=== PATIENT | female | born 1930 | race Caucasian/White ===

== ENCOUNTER 2017-12-29 11:47 | Emergency (ER) | payer MEDICARE, OTHER ==
[2017-12-29] MEDS: PERCOCET 5MG/325MG TAB PO (12:22)
== END 2017-12-29 14:07 | disposition home or self-care (01) ==
LOC: M ED 11:47
DX: S43.101A Unspecified dislocation of right acromioclavicular joint, initial encounter (principal); X50.1XXA Overexertion from prolonged static or awkward postures, initial encounter; Y92.092 Bedroom in other non-institutional residence as the place of occurrence of the external cause; I12.9 Hypertensive chronic kidney disease with stage 1 through stage 4 chronic kidney disease, or unspecified chronic kidney disease; F41.9 Anxiety disorder, unspecified; K21.9 Gastro-esophageal reflux disease without esophagitis; Z85.3 Personal history of malignant neoplasm of breast; N18.4 Chronic kidney disease, stage 4 (severe); Z99.2 Dependence on renal dialysis; Z87.891 Personal history of nicotine dependence; Z88.2 Allergy status to sulfonamides; Z88.8 Allergy status to other drugs, medicaments and biological substances; Z88.0 Allergy status to penicillin; Z88.1 Allergy status to other antibiotic agents; Z79.899 Other long term (current) drug therapy
CPT/HCPCS: 73030

== ENCOUNTER 2018-06-25 06:38 | Inpatient (IN) | payer MEDICARE, OTHER, MEDICAID ==
[2018-06-25] MEDS: cloNIDine 0.2 MG TAB PO (07:29)
[2018-06-25 08:56] LABS: BASO % 1.3 % (0.0-1.0); EOS # 0.2 10^3/uL (0.0-0.50); EOS % 5.2 % (0.0-3.0); HEMATOCRIT 27.9 % (36.0-47.0); HEMOGLOBIN 9.1 g/dl (12.0-15.5); IMMATURE GRANULOCYTE % 0.3 % (0-3.0); LYMPH # 0.5 10^3/uL (1.5-4.5); MEAN CORPUSCULAR HEMOGLOBIN 34.6 pg (27.0-33.0); MEAN CORPUSCULAR HGB CONC 32.6 g/dl (32.0-36.5); MEAN CORPUSCULAR VOLUME 106.1 fl (80.0-96.0); MONO # 0.2 10^3/uL (0.0-0.8); MONO % 7.8 % (0.0-5.0); NEUTROPHILS # 2.1 10^3/uL (1.8-7.7); NEUTROPHILS % 69.4 % (36.0-66.0); RED BLOOD COUNT 2.63 10^6/uL (4.00-5.40); RED CELL DISTRIBUTION WIDTH 13.4 % (11.5-14.5); WHITE BLOOD COUNT 3.1 10^3/uL (4.0-10.0)
[2018-06-25 08:58] LABS: ANION GAP 11 MEQ/L (8-16); BLOOD UREA NITROGEN 49 MG/DL (7-18); CALCIUM LEVEL 8.1 MG/DL (8.8-10.2); CARBON DIOXIDE LEVEL 28 MEQ/L (21-32); CHLORIDE LEVEL 102 MEQ/L (98-107); CREATININE FOR GFR 6.32 MG/DL (0.55-1.30); GLOMERULAR FILTRATION RATE 6.6 (>32); GLUCOSE, FASTING 101 MG/DL (70-100); POTASSIUM SERUM 4.6 MEQ/L (3.5-5.1); SODIUM LEVEL 141 MEQ/L (136-145)
[2018-06-25 09:31] LABS: PLATELET COUNT, AUTOMATED 94 10^3/uL (150-450)
[2018-06-25 09:33] LABS: IMMATURE PLATELET FRACTION % 4.6 % (0.0-9.6)
[2018-06-25] MEDS ORDERED: ACETAMINOPHEN TAB 650MG DOSE (2X325MG) PO (11:15)
[2018-06-25] MEDS: FAMOTIDINE 20 MG TAB PO (11:31)
[2018-06-25] MEDS: CitaloPRAM (CeleXA) 20 MG TAB PO (11:31)
[2018-06-25] MEDS: NORCO, ANEXSIA 5/325MG TABLET (HYDROcodone/ACETAMINOPHEN) PO ×2 (11:32→20:47)
[2018-06-25] MEDS: MELOXICAM (MOBIC) 7.5 MG TAB PO (11:53)
[2018-06-25] MEDS: GABAPENTIN 100 MG CAP PO (17:26)
[2018-06-25] MEDS: FUROSEMIDE 80 MG TAB PO (17:26)
[2018-06-25] MEDS: SENOKOT S TAB PO (20:47)
[2018-06-25] MEDS: cloNIDine 0.1 MG TAB PO (20:48)
[2018-06-26] MEDS: FAMOTIDINE 20 MG TAB PO (08:58)
[2018-06-26] MEDS: cloNIDine 0.1 MG TAB PO ×2 (08:58→21:49)
[2018-06-26] MEDS: CitaloPRAM (CeleXA) 20 MG TAB PO (08:58)
[2018-06-26] MEDS: GABAPENTIN 100 MG CAP PO ×2 (08:58→17:34)
[2018-06-26] MEDS: MELOXICAM (MOBIC) 7.5 MG TAB PO (08:58)
[2018-06-26] MEDS: NORCO, ANEXSIA 5/325MG TABLET (HYDROcodone/ACETAMINOPHEN) PO ×2 (08:59→21:48)
[2018-06-26 09:49] LABS: BASO # 0.1 10^3/uL (0.0-0.2); BASO % 1.3 % (0.0-1.0); EOS # 0.1 10^3/uL (0.0-0.50); EOS % 2.2 % (0.0-3.0); HEMATOCRIT 25.8 % (36.0-47.0); HEMOGLOBIN 8.5 g/dl (12.0-15.5); LYMPH # 0.6 10^3/uL (1.5-4.5); LYMPH % 16.2 % (24.0-44.0); MEAN CORPUSCULAR HEMOGLOBIN 34.8 pg (27.0-33.0); MEAN CORPUSCULAR HGB CONC 32.9 g/dl (32.0-36.5); MEAN CORPUSCULAR VOLUME 105.7 fl (80.0-96.0); MONO # 0.3 10^3/uL (0.0-0.8); MONO % 9.2 % (0.0-5.0); NEUTROPHILS # 2.6 10^3/uL (1.8-7.7); NEUTROPHILS % 71.1 % (36.0-66.0); PLATELET COUNT, AUTOMATED 100 10^3/uL (150-450); RED BLOOD COUNT 2.44 10^6/uL (4.00-5.40); RED CELL DISTRIBUTION WIDTH 13.5 % (11.5-14.5); WHITE BLOOD COUNT 3.7 10^3/uL (4.0-10.0)
[2018-06-26 09:55] LABS: ALBUMIN 3.1 GM/DL (3.2-5.2); ANION GAP 5 MEQ/L (8-16); BLOOD UREA NITROGEN 22 MG/DL (7-18); CALCIUM LEVEL 7.9 MG/DL (8.8-10.2); CARBON DIOXIDE LEVEL 33 MEQ/L (21-32); CHLORIDE LEVEL 102 MEQ/L (98-107); CREATININE FOR GFR 4.24 MG/DL (0.55-1.30); GLOMERULAR FILTRATION RATE 10.5 (>32); GLUCOSE, FASTING 87 MG/DL (70-100); PHOSPHORUS LEVEL 3.7 MG/DL (2.5-4.9); POTASSIUM SERUM 4.2 MEQ/L (3.5-5.1); SODIUM LEVEL 140 MEQ/L (136-145)
[2018-06-26] MEDS: BUPIVACAINE HCL 0.5% 30 ML VIAL As Ordered (14:26)
[2018-06-26] MEDS: LIDOCAINE 1% SDV INJ 30 ML VIAL As Ordered (14:26)
[2018-06-26] MEDS ORDERED: LIDOCAINE 2% INJ 100 MG/5 ML SDV (FOR ANES.) As Ordered (15:43)
[2018-06-26] MEDS ORDERED: PROPOFOL 500 MG/50 ML VIAL As Ordered (15:44)
[2018-06-26] MEDS ORDERED: MIDAZOLAM INJ 2 MG/2 ML VIAL (J2250) As Ordered (15:44)
[2018-06-26] MEDS ORDERED: fentaNYL 100 MCG/2 ML INJECTION (J3010) As Ordered (15:44)
[2018-06-26] MEDS: HEPARIN SOD (PORCINE) 5000 UNITS/ML VIAL As Ordered (16:31)
[2018-06-26] MEDS ORDERED: ONDANSETRON 4MG/2ML VIAL (J2405) IV (17:30)
[2018-06-26] MEDS ORDERED: fentaNYL 100 MCG/2 ML INJECTION (J3010) IV (17:30)
[2018-06-26] MEDS: NS 1,000 ML IV (17:30)
[2018-06-26] MEDS: FUROSEMIDE 80 MG TAB PO (17:35)
[2018-06-26] MEDS: SENOKOT S TAB PO (21:48)
[2018-06-27 06:11] LABS: EOS # 0.1 10^3/uL (0.0-0.50); EOS % 2.4 % (0.0-3.0); HEMATOCRIT 24.2 % (36.0-47.0); HEMOGLOBIN 7.8 g/dl (12.0-15.5); IMMATURE GRANULOCYTE % 0.3 % (0-3.0); LYMPH # 0.6 10^3/uL (1.5-4.5); MEAN CORPUSCULAR HEMOGLOBIN 34.5 pg (27.0-33.0); MEAN CORPUSCULAR HGB CONC 32.2 g/dl (32.0-36.5); MEAN CORPUSCULAR VOLUME 107.1 fl (80.0-96.0); MONO # 0.4 10^3/uL (0.0-0.8); NEUTROPHILS # 2.7 10^3/uL (1.8-7.7); NEUTROPHILS % 71.3 % (36.0-66.0); RED BLOOD COUNT 2.26 10^6/uL (4.00-5.40); RED CELL DISTRIBUTION WIDTH 13.5 % (11.5-14.5); WHITE BLOOD COUNT 3.8 10^3/uL (4.0-10.0)
[2018-06-27 06:17] LABS: PLATELET COUNT, AUTOMATED 90 10^3/uL (150-450)
[2018-06-27 06:18] LABS: IMMATURE PLATELET FRACTION % 3.5 % (0.0-9.6)
[2018-06-27 06:30] LABS: ALBUMIN 2.9 GM/DL (3.2-5.2); ANION GAP 9 MEQ/L (8-16); BLOOD UREA NITROGEN 35 MG/DL (7-18); CALCIUM LEVEL 7.7 MG/DL (8.8-10.2); CARBON DIOXIDE LEVEL 31 MEQ/L (21-32); CHLORIDE LEVEL 101 MEQ/L (98-107); CREATININE FOR GFR 5.76 MG/DL (0.55-1.30); GLOMERULAR FILTRATION RATE 7.4 (>32); GLUCOSE, FASTING 88 MG/DL (70-100); POTASSIUM SERUM 4.7 MEQ/L (3.5-5.1); SODIUM LEVEL 141 MEQ/L (136-145)
[2018-06-27] MEDS: CitaloPRAM (CeleXA) 20 MG TAB PO (06:34)
[2018-06-27] MEDS: FAMOTIDINE 20 MG TAB PO (06:34)
[2018-06-27] MEDS: cloNIDine 0.1 MG TAB PO ×2 (06:35→20:05)
[2018-06-27] MEDS: GABAPENTIN 100 MG CAP PO ×2 (06:35→17:07)
[2018-06-27] MEDS: MELOXICAM (MOBIC) 7.5 MG TAB PO (06:35)
[2018-06-27] MEDS: NORCO, ANEXSIA 5/325MG TABLET (HYDROcodone/ACETAMINOPHEN) PO ×2 (06:36→20:06)
[2018-06-27] MEDS ORDERED: DARBEPOETIN 100 MCG/0.5 ML *DIALYSIS* SYRINGE (J0882) IV (11:00)
[2018-06-27 12:44] LABS: IMMEDIATE SPIN CROSSMATCH 1 1
[2018-06-27] MEDS: HEPARIN 1,000 UNITS/ML 10ML VIAL (FOR RADIOLOGY& DIALYSIS ONLY) IV (14:21)
[2018-06-27] MEDS: FUROSEMIDE 80 MG TAB PO (17:07)
[2018-06-27] MEDS: (RENVELA) SEVELAMER **CARBONate** 800 MG TAB PO (17:54)
[2018-06-27] MEDS: SENOKOT S TAB PO ×2 (20:03→20:53)
[2018-06-28 07:06] LABS: ALBUMIN 2.9 GM/DL (3.2-5.2); ANION GAP 8 MEQ/L (8-16); BLOOD UREA NITROGEN 17 MG/DL (7-18); CARBON DIOXIDE LEVEL 31 MEQ/L (21-32); CHLORIDE LEVEL 100 MEQ/L (98-107); CREATININE FOR GFR 4.12 MG/DL (0.55-1.30); GLOMERULAR FILTRATION RATE 10.9 (>32); GLUCOSE, FASTING 90 MG/DL (70-100); PHOSPHORUS LEVEL 3.3 MG/DL (2.5-4.9); POTASSIUM SERUM 4.1 MEQ/L (3.5-5.1); SODIUM LEVEL 139 MEQ/L (136-145)
[2018-06-28 09:05] LABS: BASO % 1.1 % (0.0-1.0); EOS # 0.1 10^3/uL (0.0-0.50); EOS % 3.5 % (0.0-3.0); HEMATOCRIT 29.5 % (36.0-47.0); HEMOGLOBIN 9.7 g/dl (12.0-15.5); IMMATURE GRANULOCYTE % 0.5 % (0-3.0); LYMPH # 0.6 10^3/uL (1.5-4.5); LYMPH % 16.1 % (24.0-44.0); MEAN CORPUSCULAR HEMOGLOBIN 32.4 pg (27.0-33.0); MEAN CORPUSCULAR HGB CONC 32.9 g/dl (32.0-36.5); MEAN CORPUSCULAR VOLUME 98.7 fl (80.0-96.0); MONO # 0.4 10^3/uL (0.0-0.8); MONO % 11.3 % (0.0-5.0); NEUTROPHILS # 2.5 10^3/uL (1.8-7.7); NEUTROPHILS % 67.5 % (36.0-66.0); PLATELET COUNT, AUTOMATED 104 10^3/uL (150-450); RED BLOOD COUNT 2.99 10^6/uL (4.00-5.40); RED CELL DISTRIBUTION WIDTH 18.7 % (11.5-14.5); WHITE BLOOD COUNT 3.7 10^3/uL (4.0-10.0)
[2018-06-28] MEDS: CitaloPRAM (CeleXA) 20 MG TAB PO (09:26)
[2018-06-28] MEDS: MELOXICAM (MOBIC) 7.5 MG TAB PO (09:26)
[2018-06-28] MEDS: (RENVELA) SEVELAMER **CARBONate** 800 MG TAB PO ×3 (09:27→16:54)
[2018-06-28] MEDS: FAMOTIDINE 20 MG TAB PO (09:27)
[2018-06-28] MEDS: cloNIDine 0.1 MG TAB PO ×2 (09:27→20:19)
[2018-06-28] MEDS: GABAPENTIN 100 MG CAP PO ×2 (09:27→16:54)
[2018-06-28] MEDS: NORCO, ANEXSIA 5/325MG TABLET (HYDROcodone/ACETAMINOPHEN) PO ×2 (09:28→20:20)
[2018-06-28] MEDS: FUROSEMIDE 80 MG TAB PO (16:54)
[2018-06-28] MEDS: SENOKOT S TAB PO (20:19)
[2018-06-29 06:54] LABS: EOS # 0.2 10^3/uL (0.0-0.50); EOS % 5.6 % (0.0-3.0); HEMOGLOBIN 9.3 g/dl (12.0-15.5); IMMATURE GRANULOCYTE % 0.7 % (0-3.0); LYMPH # 0.7 10^3/uL (1.5-4.5); LYMPH % 22.9 % (24.0-44.0); MEAN CORPUSCULAR HEMOGLOBIN 32.6 pg (27.0-33.0); MEAN CORPUSCULAR HGB CONC 32.1 g/dl (32.0-36.5); MEAN CORPUSCULAR VOLUME 101.8 fl (80.0-96.0); MONO # 0.4 10^3/uL (0.0-0.8); MONO % 12.2 % (0.0-5.0); NEUTROPHILS # 1.7 10^3/uL (1.8-7.7); NEUTROPHILS % 57.6 % (36.0-66.0); RED BLOOD COUNT 2.85 10^6/uL (4.00-5.40); RED CELL DISTRIBUTION WIDTH 17.9 % (11.5-14.5); WHITE BLOOD COUNT 2.9 10^3/uL (4.0-10.0)
[2018-06-29 07:07] LABS: PLATELET COUNT, AUTOMATED 86 10^3/uL (150-450)
[2018-06-29 07:08] LABS: IMMATURE PLATELET FRACTION % 4.8 % (0.0-9.6)
[2018-06-29 07:13] LABS: ANION GAP 10 MEQ/L (8-16); BLOOD UREA NITROGEN 31 MG/DL (7-18); CALCIUM LEVEL 8.1 MG/DL (8.8-10.2); CARBON DIOXIDE LEVEL 31 MEQ/L (21-32); CHLORIDE LEVEL 100 MEQ/L (98-107); CREATININE FOR GFR 5.83 MG/DL (0.55-1.30); GLOMERULAR FILTRATION RATE 7.3 (>32); GLUCOSE, FASTING 86 MG/DL (70-100); PHOSPHORUS LEVEL 4.1 MG/DL (2.5-4.9); POTASSIUM SERUM 4.1 MEQ/L (3.5-5.1); SODIUM LEVEL 141 MEQ/L (136-145)
[2018-06-29] MEDS: GABAPENTIN 100 MG CAP PO ×2 (07:57→17:13)
[2018-06-29] MEDS: (RENVELA) SEVELAMER **CARBONate** 800 MG TAB PO ×3 (07:57→17:13)
[2018-06-29] MEDS: cloNIDine 0.1 MG TAB PO ×2 (07:58→20:12)
[2018-06-29] MEDS: CitaloPRAM (CeleXA) 20 MG TAB PO (07:58)
[2018-06-29] MEDS: MELOXICAM (MOBIC) 7.5 MG TAB PO (07:58)
[2018-06-29] MEDS: NORCO, ANEXSIA 5/325MG TABLET (HYDROcodone/ACETAMINOPHEN) PO ×2 (07:58→20:13)
[2018-06-29] MEDS: FAMOTIDINE 20 MG TAB PO (07:58)
[2018-06-29] MEDS: FUROSEMIDE 80 MG TAB PO (17:13)
[2018-06-29] MEDS: SENOKOT S TAB PO (20:12)
[2018-06-30 06:39] LABS: ALBUMIN 2.6 GM/DL (3.2-5.2); ANION GAP 10 MEQ/L (8-16); BLOOD UREA NITROGEN 40 MG/DL (7-18); CALCIUM LEVEL 7.7 MG/DL (8.8-10.2); CARBON DIOXIDE LEVEL 30 MEQ/L (21-32); CHLORIDE LEVEL 98 MEQ/L (98-107); CREATININE FOR GFR 7.62 MG/DL (0.55-1.30); GLOMERULAR FILTRATION RATE 5.3 (>32); GLUCOSE, FASTING 82 MG/DL (70-100); PHOSPHORUS LEVEL 3.8 MG/DL (2.5-4.9); POTASSIUM SERUM 4.4 MEQ/L (3.5-5.1); SODIUM LEVEL 138 MEQ/L (136-145)
[2018-06-30] MEDS: MELOXICAM (MOBIC) 7.5 MG TAB PO (08:58)
[2018-06-30] MEDS: NORCO, ANEXSIA 5/325MG TABLET (HYDROcodone/ACETAMINOPHEN) PO (08:58)
[2018-06-30] MEDS: (RENVELA) SEVELAMER **CARBONate** 800 MG TAB PO (08:59)
[2018-06-30] MEDS: GABAPENTIN 100 MG CAP PO (08:59)
[2018-06-30] MEDS: FAMOTIDINE 20 MG TAB PO (08:59)
[2018-06-30] MEDS: CitaloPRAM (CeleXA) 20 MG TAB PO (08:59)
[2018-06-30] MEDS: cloNIDine 0.1 MG TAB PO (08:59)
[2018-07-12] MEDS ORDERED: VITAMIN D 50,000 UNITS CAPSULE (ERGOCALCIFEROL 1.25MG) PO (09:00)
== END 2018-06-30 10:35 | DRG 252 ==
LOC: M ED 06:38 → M ED INP 11:03 → M MSPAV 12:41
PROC: 05CY0ZZ Extirpation of Matter from Upper Vein, Open Approach (ICD-10-PCS; principal; 2018-06-26 13:41)
PROC: 0JBH0ZZ Excision of Left Lower Arm Subcutaneous Tissue and Fascia, Open Approach (ICD-10-PCS; 2018-06-26 13:41)
PROC: 30233N1 Transfusion of Nonautologous Red Blood Cells into Peripheral Vein, Percutaneous Approach (ICD-10-PCS; 2018-06-26 16:16)
DX: T82.838A Hemorrhage due to vascular prosthetic devices, implants and grafts, initial encounter (principal); N18.6 End stage renal disease; Q61.2 Polycystic kidney, adult type; K86.2 Cyst of pancreas; I12.0 Hypertensive chronic kidney disease with stage 5 chronic kidney disease or end stage renal disease; D62 Acute posthemorrhagic anemia; K76.89 Other specified diseases of liver; D63.1 Anemia in chronic kidney disease; Z85.3 Personal history of malignant neoplasm of breast; Z79.899 Other long term (current) drug therapy; Z88.2 Allergy status to sulfonamides; Z88.8 Allergy status to other drugs, medicaments and biological substances; Z88.0 Allergy status to penicillin; Z90.11 Acquired absence of right breast and nipple; I15.0 Renovascular hypertension

== ENCOUNTER → 2018-08-12 | Outpatient (CLI) | payer MEDICARE, OTHER, MEDICAID ==
[~2018-08-12] MED LIST: /DIALVITA PO; /RANI15TA PO; /SENOSTA PO; ACET1TAB55 PO; AMLO10TA; AVAP150T PO; CELE20TA PO; CLON-412 PO; CLON0.2T PO; DRIS50003 PO; FURO80TA2 PO; GABA-1171 PO; GENT80SY INJ; HYDR-3713 PO; HYDR20IN2 PO; HYDR50TA PO; IRBE150T3 PO; ISOVUE-300 61% 50ML VIAL (Q9967) As Ordered ONE; KION15SU PO; LASI80TA PO; LIDOCAINE 2% MDV 20 ML VIAL As Ordered ONE; MELO7.5T7 PO; MIDAZOLAM INJ 2 MG/2 ML VIAL (J2250) As Ordered ONE; MOBI4TAB PO; NEPHTAB PO; NEUR100C PO; NORC1TAB4 PO; PERC5TAB12 PO; PERC7.5T12 PO; RANI300T PO; RENA800T; RENV2TAB PO; ROCA0.25; SENN8.6T17 PO; SENN8.6T54 PO; SEVE800T3 PO; SEVE80TAB PO; TYLE650T30 PO; VANC50SOL IV; VITAD1000T PO; fentaNYL 100 MCG/2 ML INJECTION (J3010) As Ordered ONE
--- NOTE | 2018-08-21 08:31 | REPIR ---
DATE OF PROCEDURE: 08/12/2018 ATTENDING SURGEON: Dr. Ben Mccormack TOLL REPAIRER CENTRAL OFFICE: Mary Larry and Sienna Zaragoza PREOPERATIVE DIAGNOSES: End-stage renal disease, dysfunctional left radiocephalic arteriovenous fistula. POSTOPERATIVE DIAGNOSES: End-stage renal disease, dysfunctional left radiocephalic arteriovenous fistula. PROCEDURE: Left radiocephalic arteriovenous fistulogram, retrograde left radial artery angiogram, left cephalic vein angioplasty with 8 x 200 balloon, left basilic vein angioplasty with 8 x 200 balloon. INDICATION: The patient is an 88-year-old female with end-stage renal disease who dialyzes through a left radiocephalic arteriovenous fistula which is pulsatile has occasional excessive bleeding on decannulation. The patient undergo a fistulogram with possible angioplasty, stent and/or atherectomy. Risks, benefits and alternative treatment options were discussed with the patient. ANESTHESIA: Local with sedation 1 mg Versed, 0 mcg of fentanyl. 2 mL of 2% lidocaine. FLUORO TIME: 1.7 minutes. CONTRAST: 4 mL of Isovue-300. SEDATION TIME: From 9:34 a.m. to 9:56 a.m. for a total 22 minutes. Sedation was administered by myself through the access in the arteriovenous fistula. The cardiopulmonary monitoring was performed by the nursing room under my direct supervision. I was present for and directed the entire case. PROCEDURE: The patient was taken to the angiography suite, placed supine on the angiography room table, left upper extremity was prepped and draped in a standard surgical fashion. The arteriovenous fistula was cannulated with a micropuncture needle after anesthetizing the overlying skin with 2% lidocaine. The micropuncture wire was advanced through the micropuncture needle, which was upsized to a micropuncture sheath. A fistulogram was performed, which showed an approximate 8% stenosis at the cephalic vein, basilic vein junction at the antecubital fossa. The cephalic vein and basilic vein were angioplastied with an 8 x 200 balloon with a completion fistulogram showing resolution of the stenosis. A retrograde radial artery angiogram was performed showing no intervention was required. The sheath was removed and manual compression applied at the puncture site for hemostasis, as well as a #2-0 Prolene pursestring suture placed. All instrument, sponge, needle counts were correct at the end the case. There were no complications. Dr. Mccormack was present for and directed the entire case. The patient was transferred to the holding area and subsequent discharged in stable condition. The fistula, which was pulsatile prior to the intervention, had an easily palpable thrill at the completion of the intervention.
== END | disposition home or self-care (01) ==
LOC: M IRPRO 08:39
PROVIDERS: ATTEND Surgery Vascular Surgery
DX: T82.858A Stenosis of other vascular prosthetic devices, implants and grafts, initial encounter (principal); N18.6 End stage renal disease; Z99.2 Dependence on renal dialysis
CPT/HCPCS: 36902; 99152; C1725; C1769; C1894; J2250; J3010; Q9967

== ENCOUNTER 2019-04-10 13:18 | Emergency (ER) | payer MEDICARE, OTHER, MEDICAID ==
[~2019-04-10 13:18] MED LIST changes: -/DIALVITA PO; -/RANI15TA PO; -/SENOSTA PO; +DIAL1TAB2 PO; +HYDR-4267 PO; -HYDR50TA PO; -ISOVUE-300 61% 50ML VIAL (Q9967) As Ordered ONE; -LIDOCAINE 2% MDV 20 ML VIAL As Ordered ONE; -MIDAZOLAM INJ 2 MG/2 ML VIAL (J2250) As Ordered ONE; -NORC1TAB4 PO; +NORC1TAB7 PO; +RANI1TAB17 PO; +SENN-50 PO; -SENN8.6T54 PO; +SENO1TAB PO; -SEVE80TAB PO; -fentaNYL 100 MCG/2 ML INJECTION (J3010) As Ordered ONE
[2019-04-10] MEDS ORDERED: NITROGLYCERIN 2% OINT 1 GM *U/D* PKT TOP ONE (13:45)
[2019-04-10 14:12] LABS: BASO % 0.8 % (0.0-1.0); EOS # 0.2 10^3/uL (0.0-0.50); HEMATOCRIT 37.7 % (36.0-47.0); HEMOGLOBIN 12.3 g/dl (12.0-15.5); LYMPH # 0.4 10^3/uL (1.5-4.5); LYMPH % 9.6 % (24.0-44.0); MEAN CORPUSCULAR HEMOGLOBIN 35.2 pg (27.0-33.0); MEAN CORPUSCULAR HGB CONC 32.6 g/dl (32.0-36.5); MONO # 0.3 10^3/uL (0.0-0.8); MONO % 8.3 % (0.0-5.0); NEUTROPHILS # 2.9 10^3/uL (1.8-7.7); NEUTROPHILS % 76.5 % (36.0-66.0); RED BLOOD COUNT 3.49 10^6/uL (4.00-5.40); WHITE BLOOD COUNT 3.8 10^3/uL (4.0-10.0)
[2019-04-10 14:14] LABS: PLATELET COUNT, AUTOMATED 66 10^3/uL (150-450)
[2019-04-10 14:26] LABS: INR 1.02; PROTHROMBIN TIME 13.1 SECONDS (11.8-14.0)
[2019-04-10 14:27] LABS: PARTIAL THROMBOPLASTIN TIME 40.1 SECONDS (25.0-38.4)
[2019-04-10 14:46] LABS: ALBUMIN 3.4 GM/DL (3.2-5.2); ALT/SGPT 15 U/L (12-78); BILIRUBIN,DIRECT 0.2 MG/DL (0.0-0.2); BILIRUBIN,TOTAL 0.4 MG/DL (0.2-1.0); BLOOD UREA NITROGEN 19 MG/DL (7-18); CALCIUM LEVEL 8.4 MG/DL (8.8-10.2); CARBON DIOXIDE LEVEL 34 MEQ/L (21-32); CHLORIDE LEVEL 99 MEQ/L (98-107); CK-MB VALUE MASS 2.4 NG/ML (<3.6); CPK CREATINE PHOSPHOKINASE 55 U/L (26-192); CREATININE FOR GFR 3.82 MG/DL (0.55-1.30); GLOMERULAR FILTRATION RATE 11.8 (>32); GLUCOSE, FASTING 91 MG/DL (70-100); LIPASE 232 U/L (73-393); MB/CK RELATIVE INDEX 4.36 (< OR =4); POTASSIUM SERUM 3.4 MEQ/L (3.5-5.1); SODIUM LEVEL 140 MEQ/L (136-145); TOTAL PROTEIN 6.9 GM/DL (6.4-8.2); TROPONIN I < 0.02 NG/ML (< 0.10)
--- NOTE | 2019-04-10 15:02 | REP ---
CHEST, SINGLE VIEW: Single view of the chest is performed. No acute infiltrate or pulmonary edema is seen. Heart does not appear to be significantly enlarged. There is mild calcification and tortuosity of the thoracic aorta. The mediastinal silhouette is otherwise unremarkable. Two metallic clips are seen in the right axillary region. IMPRESSION: No acute pulmonary disease. Electronically Signed by James Treadwell MD 04/13/2019 11:18 A
[2019-04-10] MEDS ORDERED: cloNIDine 0.1 MG TAB PO ONE (15:45)
[2019-04-10 16:32] VITALS: BP 199/81
[2019-04-10 18:09] VITALS: BP 159/58
--- NOTE | 2019-04-11 08:06 | ECGEPIP ---
[facility] - ED Test Date: 2019-04-10 Pat Name: DENISE GALICIA Department: Room: - Gender: Female Lead Janitor: erica : 1930 Requested By: BIANCA Contreras Order Number: [id number] Reading MD: Tanisha Montenegro Measurements Intervals [place] Rate: 86 P: 30 [place]: 177 QRS: -12 QRSD: 114 T: 53 QT: 399 QTc: 478 Interpretive Statements SINUS RHYTHM LEFT VENTRICULAR HYPERTROPHY AND ST-T CHANGE VS ISCHEMIA INCREASED RATE 04/30/16 Electronically Signed on 04-11-2019 8:05:59 EDT by Tanisha Montenegro
== END 2019-04-10 18:14 | disposition home or self-care (01) ==
LOC: EDBD 13:18 → M ED 13:18
DX: I12.0 Hypertensive chronic kidney disease with stage 5 chronic kidney disease or end stage renal disease (principal); N18.6 End stage renal disease; D64.9 Anemia, unspecified; Z99.2 Dependence on renal dialysis; Z79.899 Other long term (current) drug therapy; Z88.0 Allergy status to penicillin; Z88.1 Allergy status to other antibiotic agents; Z88.2 Allergy status to sulfonamides; Z88.8 Allergy status to other drugs, medicaments and biological substances; Z87.891 Personal history of nicotine dependence

== ENCOUNTER → 2019-07-14 | Outpatient (REF) | payer MEDICARE, OTHER, MEDICAID | LOC: M LAB REF 09:31 | PROVIDERS: ATTEND Internal Medicine Nephrology | DX: R30.0 Dysuria (principal) ==